=== PATIENT | female | born 1950 | race Caucasian/White ===

== ENCOUNTER 2021-01-31 10:17 | Outpatient (CLI) | payer MEDICARE | END 2021-01-31 10:18 | disposition home or self-care (01) | LOC: CSHCT 10:17 | PROVIDERS: ATTEND Neurological Surgery | DX: M54.12 Radiculopathy, cervical region (principal); M48.02 Spinal stenosis, cervical region | CPT/HCPCS: 72125 ==

== ENCOUNTER 2023-06-26 08:07 | Outpatient (CLI) | payer MEDICARE ==
[2023-06-26] MEDS ORDERED: Iopamidol 300 61% 100 ML VIAL FS ONE (12:08)
== END 2023-06-26 08:08 | disposition home or self-care (01) ==
LOC: CSHCT 08:07
PROVIDERS: ATTEND Physician Assistant Medical
DX: R10.84 Generalized abdominal pain (principal); R11.0 Nausea
CPT/HCPCS: 74177; 82565; Q9967

== ENCOUNTER 2024-04-05 11:50 | Outpatient (CLI) | payer MEDICARE | END 2024-04-05 11:51 | disposition home or self-care (01) | LOC: CSHMAMMO 11:50 | PROVIDERS: ATTEND Family Medicine | DX: Z12.31 Encounter for screening mammogram for malignant neoplasm of breast (principal); Z91.89 Other specified personal risk factors, not elsewhere classified | CPT/HCPCS: 77063; 77067 ==

== ENCOUNTER 2024-09-01 10:00 | Outpatient (CLI) | payer MEDICARE | END 2024-09-01 10:01 | disposition home or self-care (01) | LOC: CSHMAMMO 10:00 | PROVIDERS: ATTEND Family Medicine | DX: M81.0 Age-related osteoporosis without current pathological fracture (principal); M85.89 Other specified disorders of bone density and structure, multiple sites; Z78.0 Asymptomatic menopausal state | CPT/HCPCS: 77080 ==